=== PATIENT | female | born 1990 | race Caucasian/White ===

== ENCOUNTER 2021-10-28 10:46 | Inpatient (IN) | payer OTHER ==
[~2021-10-28] VITALS: Ht 167.6 cm; Wt 3.6 kg
[2021-10-28] MEDS ORDERED: PRENATAL CAPLE1 EAC1 PO (11:42)
[2021-10-30] MEDS ORDERED: SIMETHICONE80 MG PO (11:44)
[2021-10-30] MEDS ORDERED: IBU800 MG PO (11:44)
[2021-10-30] MEDS ORDERED: COLACE100 MG PO (11:44)
== END 2021-10-30 14:18 | disposition home or self-care (01) | DRG 786 ==
LOC: LDR 10:46 → OB/GYN 10:46 → LDR 12:03 → O/R 13:39 → OB/GYN 13:47
PROVIDERS: ADMIT Specialist; ATTEND Specialist
PROC: 4A1HXCZ Monitoring of Products of Conception, Cardiac Rate, External Approach (ICD-10-PCS; 2021-10-28)
PROC: 10D00Z1 Extraction of Products of Conception, Low, Open Approach (ICD-10-PCS; principal; 2021-10-28 13:30)
DX: O32.1XX0 Maternal care for breech presentation, not applicable or unspecified (principal); U07.1 COVID-19; O98.513 Other viral diseases complicating pregnancy, third trimester; Z3A.39 39 weeks gestation of pregnancy; Z37.0 Single live birth; Z20.822 Contact with and (suspected) exposure to COVID-19